=== PATIENT | male | born 1930 | race Caucasian/White ===

== ENCOUNTER 2016-05-22 09:15 | Inpatient (IN) | payer OTHER ==
[~2016-05-22] VITALS: Ht 162.6 cm; Wt 54.7 kg
[~2016-05-22 09:15] MED LIST: APRESOLINE10 MG PO; ASPIRIN325 MG PO; ATORVASTATIN CA80 MG PO; BENZONATATE100 MG PO; CEFDINIR300 MG PO; DOXYCYCLINE HY100 MG PO; ECOTRIN325 MG PO; FINASTERIDE5 MG PO; FUROSEMIDE20 MG PO; HYTRIN5 MG PO; IMDUR30 MG PO; IRON325 M1 PO; K-DUR10 MEQ PO; LEVOTHYROXINE75 MCG PO; METOPROLOL TART25 MG PO; NORVASC10 MG PO; OMEPRAZOLE20 M2 PO; PLAVIX75 MG PO; PROTONIX40 MG PO; TERAZOSIN HCL5 MG PO; UNABLEOBTAIN; VITAMIN B-1250 MG PO; VITAMIN D-3 401 EACH PO; ZANTAC150 MG PO
[2016-05-22 11:49] LABS: EOSINOPHIL (%) 0 % (0-5); IMMATURE GRANULOCYTE (%) 0.3 % (0.0-0.7); LYMPHOCYTE COUNT 0.2 K/uL (1.0-2.8); MONOCYTE (%) 5.2 % (3-12); MONOCYTE COUNT 0.5 K/uL (0-0.8); NEUTROPHIL (%) 92.4 % (45-76); NEUTROPHIL COUNT 9.5 K/uL (1.8-6.4); NRBC (%) 0.5 /100 WBC (0-0)
[2016-05-22 12:14] LABS: CHLORIDE 103 mEq/L (99-109); POTASSIUM 5.4 mEq/L (3.7-5.4); SODIUM 140 mEq/L (136-147)
[2016-05-22 12:16] LABS: GLUCOSE 127 mg/dL (70-99)
[2016-05-22 12:18] LABS: ANION GAP 25 MEQ/L (2-14); TOTAL BILIRUBIN 1.6 mg/dL (0.0-1.0)
[2016-05-22 12:20] LABS: ALKALINE PHOSPHATASE 185 IU/L (3-129); GFR ESTIMATE (CALCULATED) 9 mL/min/
[2016-05-22 12:24] LABS: LIPASE 66 U/L (1.0-51.0)
[2016-05-22 12:25] LABS: TROP-I INTERPRETATION INDETERMINATE
[2016-05-22 12:35] LABS: UREA NITROGEN (BUN) 105 mg/dL (9-23)
[2016-05-22 13:02] LABS: HEMATOCRIT 28.5 % (38.0-50.0); MCH 32.2 PG (29.0-34.0); MCV 97.6 FL (86-99); RBC DIS.WIDTH-CV 15.8 % (11.8-14.6); RBC DIS.WIDTH-SD 54.6 % (39-53); RED BLOOD COUNT 2.92 M/uL (4.00-5.50); WHITE BLOOD COUNT 10.3 K/uL (4.1-10.2)
[2016-05-22 13:05] LABS: USER ID TLW
[2016-05-22 13:06] LABS: PLATELET COUNT UNABLE TO REPORT K/uL (156-360)
[2016-05-22] MEDS ORDERED: ZYLOPRIM100 MG PO (14:22)
[2016-05-22] MEDS ORDERED: CALCITRIOL0.25 MCG PO (14:24)
[2016-05-22] MEDS ORDERED: IMDUR30 MG PO (14:27)
[2016-05-22] MEDS ORDERED: NITROSTAT0.4 MG SL (14:28)
[2016-05-22] MEDS ORDERED: FLOMAX0.4 MG PO (14:29)
[2016-05-22] MEDS ORDERED: ZANTAC150 MG PO (14:29)
[2016-05-22] MEDS ORDERED: APRESOLINE10 MG PO (14:32)
[2016-05-22] MEDS ORDERED: LO-DOSE ASPIRIN81 M2 PO (14:33)
[2016-05-22] MEDS ORDERED: VITAMIN D31000 UNI2 PO (14:33)
[2016-05-22] MEDS ORDERED: B-121000 MC2 PO (14:34)
[2016-05-22] MEDS ORDERED: IRON325 M1 PO (14:35)
[2016-05-22] MEDS ORDERED: TYLENOL EXTRA500 MG PO (14:37)
[2016-05-22 15:24] LABS: CHLORIDE 106 mEq/L (99-109); POTASSIUM 5.4 mEq/L (3.7-5.4); SODIUM 142 mEq/L (136-147)
[2016-05-22 15:25] LABS: GLUCOSE 115 mg/dL (70-99)
[2016-05-22 15:27] LABS: ANION GAP 26 MEQ/L (2-14)
[2016-05-22 15:29] LABS: GFR ESTIMATE (CALCULATED) 10 mL/min/
[2016-05-22 15:32] LABS: UREA NITROGEN (BUN) 111 mg/dL (9-23)
[2016-05-22 18:15] VITALS: BP 120/107
[2016-05-22 18:29] LABS: TROP-I INTERPRETATION INDETERMINATE; TROPONIN-I 0.57 ng/mL (0.0-0.30)
== END 2016-05-22 20:32 | DRG 871 ==
LOC: EME 09:15 → EDOF 16:49
PROVIDERS: Emergency Medicine
DX: A41.9 Sepsis, unspecified organism (principal); R65.21 Severe sepsis with septic shock; N17.0 Acute kidney failure with tubular necrosis; K80.00 Calculus of gallbladder with acute cholecystitis without obstruction; E87.2 Acidosis; I13.0 Hypertensive heart and chronic kidney disease with heart failure and stage 1 through stage 4 chronic kidney disease, or unspecified chronic kidney disease; N18.4 Chronic kidney disease, stage 4 (severe); R79.89 Other specified abnormal findings of blood chemistry; I25.82 Chronic total occlusion of coronary artery; I50.9 Heart failure, unspecified; E78.5 Hyperlipidemia, unspecified; J45.909 Unspecified asthma, uncomplicated; E03.9 Hypothyroidism, unspecified; Z66 Do not resuscitate; I25.2 Old myocardial infarction; Z79.82 Long term (current) use of aspirin; Z79.02 Long term (current) use of antithrombotics/antiplatelets; Z95.5 Presence of coronary angioplasty implant and graft
CPT/HCPCS: 71020; 74176; 76705; 80048 91; 80053; 81003; 83605; 83690; 83880; 84484; 85025; 87040; 93005; 99281; 99285; J2405; J2543; J7030